=== PATIENT | male | born 1965 | race Two or more races ===

== ENCOUNTER 2021-06-05 11:32 | Emergency (ER) | payer OTHER ==
[~2021-06-05] VITALS: Ht 172.7 cm; Wt 90.7 kg
[2021-06-05] MEDS ORDERED: ONDANSETRON ODT 4 MG TAB PO ONE (13:00)
[2021-06-05] MEDS ORDERED: ACETAMINOPHEN 500 MG TAB PO ONE (13:00)
[2021-06-05 13:06] VITALS: BP 118/76
== END 2021-06-05 14:27 | disposition home or self-care (01) ==
LOC: ER 11:32
DX: S16.1XXA Strain of muscle, fascia and tendon at neck level, initial encounter (principal); R51.9 Headache, unspecified; F17.210 Nicotine dependence, cigarettes, uncomplicated; V43.52XA Car driver injured in collision with other type car in traffic accident, initial encounter; Y93.89 Activity, other specified; Y92.410 Unspecified street and highway as the place of occurrence of the external cause; Y99.8 Other external cause status
CPT/HCPCS: 70450; 72040; 99284; Q0162